=== PATIENT | female | born 1955 | race Caucasian/White ===

== ENCOUNTER → 2018-06-30 14:30 | Outpatient (CLI) | payer MEDICARE, OTHER, SELFPAY | PROVIDERS: Visit Provider Psychiatry & Neurology Neurology | DX: G43.009 Migraine without aura, not intractable, without status migrainosus (principal); R20.2 Paresthesia of skin | CPT/HCPCS: 99214 ==

== ENCOUNTER → 2018-07-14 10:08 | Outpatient (CLI) | payer MEDICARE, OTHER, SELFPAY ==
[2018-07-14 12:02] LABS: TSH (W/Ref FT4) 1.47 uIU/mL (0.358-3.74)
== END ==
DX: F41.9 Anxiety disorder, unspecified (principal); R20.8 Other disturbances of skin sensation; G43.009 Migraine without aura, not intractable, without status migrainosus
CPT/HCPCS: 36415; 84443

== ENCOUNTER 2018-08-07 14:02 | Outpatient (REF) | payer MEDICARE, OTHER, SELFPAY ==
[2018-08-10 10:47] LABS: Campylobacter PCR SEE COMMENTS; Salmonella PCR SEE COMMENTS; Shiga Toxin PCR SEE COMMENTS; Shigella/Enteroinvasive Ecoli SEE COMMENTS
[2018-08-11 17:27] LABS: Calprotectin <15.6 mcg/g
== END 2018-08-07 14:22 ==
LOC: LBN 14:02
PROVIDERS: Visit Provider Nurse Practitioner Family
DX: K58.1 Irritable bowel syndrome with constipation (principal); R14.0 Abdominal distension (gaseous); R13.10 Dysphagia, unspecified
CPT/HCPCS: 87505; 83993; 87324

== ENCOUNTER 2018-12-30 01:24 | Outpatient (CLI) | payer MEDICARE, OTHER, SELFPAY ==
--- NOTE | 2018-12-30 12:55 | DI.MAMMO_ITS ---
SYMPTOM/DIAGNOSIS: SCREENING, Z12.31 MAMMOGRAMS: Mammograms were interpreted according to the usual protocol including computer analysis with CAD system, tomosynthesis and C view imaging. Comparison is made with exams from [id number]. The breasts are composed of scattered fibroglandular densities, breast density, Category B. No suspicious masses or suspicious microcalcifications are seen. There has been no significant change. IMPRESSION: Category 1B, negative mammogram. Yearly screening mammography is recommended. [facility] ASSESSMENT OF FINDINGS: Negative. Category 1. Patient will receive a letter notifying them of these results. BI-RADS category B. There are scattered areas of fibroglandular density.
== END 2018-12-30 01:44 ==
DX: Z12.31 Encounter for screening mammogram for malignant neoplasm of breast (principal)
CPT/HCPCS: 77063; 77067

== ENCOUNTER 2019-12-20 02:13 | Outpatient (CLI) | payer MEDICARE, OTHER, SELFPAY ==
[2019-12-20 13:51] LABS: ALT 42 U/L (14-59); AST 25 U/L (15-37); Albumin 3.6 g/dL (3.4-5.0); Alkaline Phosphatase 120 U/L (46-116); Anion Gap 8.8 mmol/L (3-11); BUN 15 mg/dL (7-18); Bilirubin, Total 0.4 mg/dL (0.2-1.0); CO2 28.2 mmol/L (21.0-32.0); CREATININE 0.94 mg/dL (0.55-1.02); Calcium 9.3 mg/dL (8.5-10.1); Calculated LDL 160 mg/dL (>130); Chloride 105 mmol/L (98-107); Cholesterol 249 mg/dL (<200); Estimated GFR 59.58 (mL/min/1.73m2); Glucose 86 mg/dL (74-106); HDL Cholesterol 72 mg/dL (40-60); Potassium 4.7 mmol/L (3.5-5.1); Sodium 142 mmol/L (136-145); Total Protein 7.2 g/dL (6.4-8.2); Triglyceride 86 mg/dL (<150)
[2019-12-21 07:55] LABS: Vitamin D 25 Total 32.6 ng/ml (30-100)
== END 2019-12-20 02:33 ==
DX: I10 Essential (primary) hypertension (principal); E03.9 Hypothyroidism, unspecified; E55.9 Vitamin D deficiency, unspecified; Z13.6 Encounter for screening for cardiovascular disorders
CPT/HCPCS: 36415; 80053; 80061; 82306

== ENCOUNTER 2020-06-04 00:25 | Outpatient (CLI) | payer MEDICARE, OTHER, SELFPAY ==
--- NOTE | 2020-06-04 12:45 | DI.MAMMO_ITS ---
EXAM: MAMMO SCREENING CLINICAL HISTORY: screening, Z12.39 TECHNIQUE: Mammograms were interpreted according to the usual protocol including computer analysis w ith CAD system, tomosynthesis and C-view imaging. COMPARISON: 2012 through 2018 FINDINGS: The breasts are composed of scattered fibroglandular densities, Breast Density category B. No suspicious masses or suspicious microcalcifications are seen. No skin thickening or abnormal axillary lymph nodes are seen. There has been no significant change from prior exams. IMPRESSION: BI-RADS Category 1 - Negative Yearly screening mammography is recommended. Breast Density Category B, scattered fibroglandular densities.
== END 2020-06-04 00:45 ==
DX: Z12.31 Encounter for screening mammogram for malignant neoplasm of breast (principal)
CPT/HCPCS: 77063; 77067

== ENCOUNTER 2021-07-23 04:50 | Outpatient (CLI) | payer MEDICARE, OTHER, SELFPAY ==
[2021-07-23 12:44] LABS: HCT 39.5 % (36.0-46.0); HGB 12.5 g/dL (11.2-15.7); MCH 28.7 pg (27.0-33.0); MCHC 31.6 % (32.0-36.0); MCV 90.8 fL (80-95); MPV 10.7 fL (8.0-11.0); Platelet Count 273 10^3/uL (130-400); RBC 4.35 10^6/uL (3.93-5.22); RDW 14.2 % (11.7-14.6); RDW-SD 47.5 fL; WBC 6.69 10^3/uL (4.4-10.8)
[2021-07-23 13:08] LABS: ALT 28 U/L (14-59); AST 24 U/L (15-37); Albumin 3.7 g/dL (3.4-5.0); Alkaline Phosphatase 108 U/L (46-116); Anion Gap 7.3 mmol/L (3-11); BUN 23 mg/dL (7-18); Bilirubin, Total 0.4 mg/dL (0.2-1.0); CO2 28.7 mmol/L (21.0-32.0); CREATININE 1.1 mg/dL (0.55-1.02); Calcium 9.2 mg/dL (8.5-10.1); Chloride 104 mmol/L (98-107); Estimated GFR 49.39 (mL/min/1.73m2); Glucose 83 mg/dL (74-106); Potassium 4.3 mmol/L (3.5-5.1); Sodium 140 mmol/L (136-145); Total Protein 7.4 g/dL (6.4-8.2)
== END 2021-07-23 04:51 | disposition home or self-care (01) ==
LOC: LOS 04:51
DX: D50.9 Iron deficiency anemia, unspecified (principal); K21.9 Gastro-esophageal reflux disease without esophagitis
CPT/HCPCS: 36415; 80053; 85027

== ENCOUNTER → 2022-03-17 01:22 | Outpatient (CLI) | payer MEDICARE, OTHER, SELFPAY ==
--- NOTE | 2022-03-17 08:30 | DI.MAMMO_ITS ---
Exam(s) MAMMO SCREENING EXAM: MAMMO SCREENING CLINICAL HISTORY: screening,Z12.39 TECHNIQUE: Mammograms were interpreted according to the usual protocol including computer analysis w [employer] CAD system, tomosynthesis and C-view imaging. COMPARISON: 2012 through 2019 FINDINGS: The breasts are composed of scattered fibroglandular densities, Breast Density category B. No suspicious masses or suspicious microcalcifications are seen. No skin thickening or abnormal axillary lymph nodes are seen. There has been no significant change from prior exams. IMPRESSION: BI-RADS Category 1, Negative mammogram Yearly screening mammography is recommended. Breast Density - Category B, scattered fibroglandular densities. A negative radiographic report should not delay biopsy if a dominant or clinically suspicious mass is present. Up to ten percent of cancers are not identified on mammography. A negative report may reinforce clinical impression. Adenosis and dense breasts may obscure an underlying neoplasm. False positive reports average 6 to 10%. Patient will receive a letter notifying them of these results.
== END ==
DX: Z12.31 Encounter for screening mammogram for malignant neoplasm of breast (principal)
CPT/HCPCS: 77063; 77067

== ENCOUNTER 2022-03-20 02:39 | Outpatient (CLI) | payer MEDICARE, OTHER, SELFPAY ==
[2022-03-20 12:06] LABS: ALT 26 U/L (14-59); AST 20 U/L (15-37); Albumin 3.9 g/dL (3.4-5.0); Alkaline Phosphatase 111 U/L (46-116); BUN 19 mg/dL (7-18); Bilirubin, Total 0.4 mg/dL (0.2-1.0); Calcium 9.4 mg/dL (8.5-10.1); Calculated LDL 146 mg/dL (<100); Chloride 105 mmol/L (98-107); Cholesterol 232 mg/dL (<200); Estimated GFR 54.97 (mL/min/1.73m2); Glucose 90 mg/dL (74-106); HDL Cholesterol 68 mg/dL (40-60); Potassium 4.5 mmol/L (3.5-5.1); Sodium 140 mmol/L (136-145); Total Protein 7.6 g/dL (6.4-8.2); Triglyceride 93 mg/dL (<150)
== END 2022-03-20 02:40 | disposition home or self-care (01) ==
LOC: LBO 02:39
DX: E78.5 Hyperlipidemia, unspecified (principal); F41.9 Anxiety disorder, unspecified; K21.9 Gastro-esophageal reflux disease without esophagitis; K58.9 Irritable bowel syndrome, unspecified
CPT/HCPCS: 36415; 80053; 80061

== ENCOUNTER 2023-04-08 01:02 | Outpatient (CLI) | payer MEDICARE, OTHER, SELFPAY ==
--- NOTE | 2023-04-08 08:15 | DI.MAMMO_ITS ---
Exam(s) MAMMO SCREENING EXAM: MAMMO SCREENING CLINICAL HISTORY: screening,z12.39 TECHNIQUE: Mammograms were interpreted according to the usual protocol including computer analysis w [employer] CAD system, tomosynthesis and C-view imaging. COMPARISON: 2012 through 2021 FINDINGS: The breasts are composed of scattered fibroglandular densities, Breast Density category B. No suspicious masses or suspicious microcalcifications are seen. No skin thickening or abnormal axillary lymph nodes are seen. There has been no significant change from prior exams. IMPRESSION: BI-RADS Category 1, Negative mammogram Yearly screening mammography is recommended. Breast Density - Category B, scattered fibroglandular densities. A negative radiographic report should not delay biopsy if a dominant or clinically suspicious mass is present. Up to ten percent of cancers are not identified on mammography. A negative report may reinforce clinical impression. Adenosis and dense breasts may obscure an underlying neoplasm. False positive reports average 6 to 10%. Patient will receive a letter notifying them of these results.
== END 2023-04-08 01:22 ==
LOC: DI 01:03
PROVIDERS: PCP Nurse Practitioner Family; Visit Provider Nurse Practitioner Family
DX: Z12.31 Encounter for screening mammogram for malignant neoplasm of breast (principal)
CPT/HCPCS: 77063; 77067

== ENCOUNTER 2024-02-16 04:39 | Outpatient (CLI) | payer MEDICARE, SELFPAY ==
[2024-02-16 10:35] LABS: ALT 29 U/L (14-59); AST 24 U/L (15-37); Albumin 3.6 g/dL (3.4-5.0); Alkaline Phosphatase 104 U/L (46-116); Anion Gap 10.7 mmol/L (3-11); BUN 20 mg/dL (7-18); Bilirubin, Total 0.4 mg/dL (0.2-1.0); CO2 28.3 mmol/L (21.0-32.0); CREATININE 1.1 mg/dL (0.55-1.02); Calcium 9.6 mg/dL (8.5-10.1); Calculated LDL 142 mg/dL (<100); Chloride 105 mmol/L (98-107); Cholesterol 237 mg/dL (<200); Estimated GFR 53.72 (mL/min/1.73m2); Glucose 93 mg/dL (74-106); HDL Cholesterol 85 mg/dL (40-60); Potassium 4.4 mmol/L (3.5-5.1); Sodium 144 mmol/L (136-145); Total Protein 7.8 g/dL (6.4-8.2); Triglyceride 51 mg/dL (<150)
[2024-02-16 10:36] LABS: Folate > 20.0 ng/mL (8.6-20.0); Vitamin B12 > 2000 pg/mL (193-986)
== END 2024-02-16 04:40 | disposition home or self-care (01) ==
PROVIDERS: PCP Nurse Practitioner Adult Health; Visit Provider Nurse Practitioner Adult Health
DX: R53.83 Other fatigue (principal); Z13.220 Encounter for screening for lipoid disorders; Z13.1 Encounter for screening for diabetes mellitus; E78.5 Hyperlipidemia, unspecified
CPT/HCPCS: 36415; 80053; 80061; 82607; 82746

== ENCOUNTER → 2024-04-11 03:03 | Outpatient (CLI) | payer MEDICARE, SELFPAY ==
--- NOTE | 2024-04-11 07:15 | DI.MAMMO_ITS ---
Exam(s) MAMMO SCREENING EXAM: MAMMO SCREENING CLINICAL HISTORY: screening,z12.39 TECHNIQUE: Bilateral full field digital CC and MLO mammographic images were obtained with 3D tomosyn thesis and utilizing computer aided detection (CAD). COMPARISON: Available for comparison. FINDINGS: Masses/Architectural Distortion: None seen. Microcalcifications: No suspicious pleomorphic-type are seen. Skin Thickening/Nipple Retraction: None. IMPRESSION: 1. No significant interval change with no specific features of malignancy noted. 2. Unless there is more urgent need, screening mammography is recommended, as per [employer] guidelines. BI-RADS Category 1 - Negative Breast Density - Category B - Scattered areas of fibroglandular density Breast density category C or D implies that the patient has dense breast tissue. Dense breast tissue is very common and is not abnormal but dense breast tissue can make it harder to find cancer on a ma mmogram. Also, dense breast tissue may increase their breast cancer risk. This information about the result of the mammogram report was provided to the patient to raise their awareness. Use this report when you speak with the patient about their risks for breast cancer, which includes their family hist ory. At that time, you may recommend for more screening tests (Ultrasound or MRI) as they might be us eful based on their risk. A negative radiographic report should not delay biopsy if a dominant or clinically suspicious mass is present. Up to ten percent of cancers are not identified on mammography. A negative report may reinforce clinical impression. Adenosis and dense breasts may obscure an underlying neoplasm. False positive reports average 6 to 10%. Patient will receive a letter notifying them of these results.
== END ==
PROVIDERS: PCP Nurse Practitioner Adult Health; Visit Provider Nurse Practitioner Adult Health
DX: Z12.31 Encounter for screening mammogram for malignant neoplasm of breast (principal)
CPT/HCPCS: 77063; 77067

== ENCOUNTER 2024-07-02 15:57 | Outpatient (REF) | payer MEDICARE, SELFPAY ==
[2024-07-02 16:24] LABS: Bilirubin Negative (Negative); Blood Small (Negative); Clarity Sl Cloudy (Clear); Glucose Negative (Negative); Ketones Negative (Negative); Leukocyte Esterase Moderate (Negative); Nitrite Negative (Negative); Urobilinogen 0.2 mg/dL (Up to 0.2); pH 5.5 (5-8)
[2024-07-02 16:36] LABS: Bacteria Moderate HPF (Negative); Epithelial Cells Few HPF (Negative); Other Cells Rare Renal (Negative); WBC 20-50 HPF (0-5)
[2024-07-02 16:37] LABS: C & S Indicated? Yes; Casts Negative LPF (Negative); Crystals Negative HPF (Negative); Mucus Negative (Negative)
== END 2024-07-02 15:58 | disposition home or self-care (01) ==
LOC: LBN 15:57
PROVIDERS: PCP Nurse Practitioner Adult Health; Visit Provider Nurse Practitioner Family
DX: N76.0 Acute vaginitis (principal); B37.9 Candidiasis, unspecified; N39.0 Urinary tract infection, site not specified
CPT/HCPCS: 87077; 81003; 81015; 87086; 87186; 87480; 87510; 87660

== ENCOUNTER 2024-12-15 22:40 | Observation (INO) | payer MEDICARE, OTHER, SELFPAY ==
[2024-12-15] VITALS (46 sets, daily range): BP systolic 147–170; BP diastolic 57–137; PULSE 62–66; RESP 10–22; O2SAT 100
--- NOTE | 2024-12-15 00:09 | DI.CT_ITS ---
Exam(s) CT ABDOMEN PELVIS W EXAM: CT ABDOMEN PELVIS W CLINICAL HISTORY: right sided abdominal pain with vomiting. TECHNIQUE: Imaging Protocol: Axial computed tomography images with coronal and sagittal reformatted images were created and reviewed CONTRAST MATERIAL: Intravenous: Omnipaque 350 Contrast volume:75 ml Oral: no COMPARISON: CT ABD PELVIS WITH CONTRAST from 01/08/2011 FINDINGS: ABDOMEN and PELVIS: Lung Bases: No acute findings. Liver: Normal density. No suspicious mass. No portal venous air. Gallbladder and biliary tract: No radiodense calculus. No wall thickening or pericholecystic fluid. No biliary dilation. Pancreas: Normal density. No abnormal calcifications or inflammatory process. No evidence of mass. Spleen: Normal. Kidneys: Normal size, contour and axis. No radiodense stones. No obstructive uropathy. No suspicious masses seen. Adrenal glands: No masses seen. Vasculature: Abdominal aorta non-dilated. Atherosclerotic changes. Abnormal rotation and swirling of the central causing for focal narrowing or occlusion. No thrombus visual. Mesenteric veins Soft tissues: Unremarkable. Bladder: Nearly empty. Not well evaluated. Bowel: No obstruction. No bowel wall thickening. No pneumatosis. Appendix normal. Increased francisco tity of stool. Peritoneal cavity: Mild amount of ascites noted. Marked mesenteric edema. No free air. Bones: Unremarkable for age. Reproductive organs: Uterine fibroids. Lymph nodes: No pathologically enlarged lymph nodes. 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 Significant mesenteric edema as well as ascites. No bowel wall thickening or pneumatosis. RADIATION DOSE DELIVERED: 311.48mGy.cm Total DLP DATA REPOSITORY: All CT scans at this facility are submitted to the National Radiology Data Registry (NRDR) Dose Index Registry (DIR) with the [employer] (ACR). RADIATION OPTIMIZATION: All CT scans at this facility use at least one of these dose optimization te chniques: automated exposure control; mA and/or kV adjustment per patient size (includes targeted exa ms where dose is matched to clinical indication); or iterative reconstruction.
--- NOTE | 2024-12-15 22:45 | RT.EKG_ITS ---
APPROVED REPORT Exam: Resting ECG Reason for Exam: right sided abdominal pain Patient Location: E HR:64 bpm ECG Measurements Heart Rate 64 AXIS MD 156 P 23 QRSd 100 QRS -24 QT 454 T 67 QTc 464 Conclusion Sinus rhythm...normal P axis, V-rate 60- 99 Atrial premature complex...SV complex w/ short R-R interval
[2024-12-15 23:05] LABS: Abs Immature Grans 0.04 10^3/uL (0.0-0.06); Absolute Basophil Count 0.09 10^3/uL (0.0-0.2); Absolute Eosinophil Count 0.04 10^3/uL (0.0-0.7); Absolute Monocyte Count 0.75 10^3/uL (0.1-0.8); Basophils % 0.7 %; Eosinophils % 0.3 %; HCT 43.5 % (36.0-46.0); HGB 14.4 g/dL (11.2-15.7); Immature Grans % 0.3 %; Lymphocytes % 13.1 %; MCH 29.6 pg (27.0-33.0); MCHC 33.1 % (32.0-36.0); MCV 90 fL (80-95); MPV 10.4 fL (8.0-11.0); Neutrophils % 79.6 %; Platelet Count 271 10^3/uL (130-400); RBC 4.86 10^6/uL (3.93-5.22); RDW 14.4 % (11.7-14.6); RDW-SD 47.2 fL; WBC 12.56 10^3/uL (4.4-10.8)
[2024-12-15 23:07] LABS: Absolute Lymphocyte Count 1.65 10^3/uL (1.2-3.4); Lactate 2.9 mmol/L (0.6-1.4)
[2024-12-15 23:25] LABS: ALT 26 U/L (14-59); AST 20 U/L (15-37); Albumin 3.7 g/dL (3.4-5.0); Alkaline Phosphatase 118 U/L (46-116); Anion Gap 10.3 mmol/L (3-11); BUN 41 mg/dL (7-18); CO2 28.7 mmol/L (21.0-32.0); CREATININE 1.3 mg/dL (0.55-1.02); Chloride 100 mmol/L (98-107); Estimated GFR 43.96 (mL/min/1.73m2); Glucose 170 mg/dL (74-106); Lipase 47 U/L (<78); Potassium 3.7 mmol/L (3.5-5.1); Sodium 139 mmol/L (136-145); Troponin I 6 ng/L (<or=51)
[2024-12-15] MEDS: Ondansetron 4 MG/2 ML VIAL IVP (23:25)
[2024-12-15] MEDS: ACETAMINOPHEN 1,000 MG/100 ML BAG 400 MG IVPB (23:25)
[2024-12-15] MEDS: Normal Saline 1,000 ML 1000 ML IV (23:25)
[2024-12-15] MEDS: Ketorolac 15 MG/ML VIAL IVP (23:25)
[2024-12-15 23:28] LABS: Calcium 9.8 mg/dL (8.5-10.1)
[2024-12-15] MEDS: Normal Saline - Diluent 50 ML VIAL IJ (23:44)
[2024-12-15] MEDS: Omnipaque 350 MG/ML 100 ML BTL 75 ML IJ (23:46)
[2024-12-15 23:49] LABS: Bilirubin Negative (Negative); Blood Negative (Negative); Clarity Clear (Clear); Glucose Negative (Negative); Ketones Negative (Negative); Leukocyte Esterase Negative (Negative); Nitrite Negative (Negative); Urobilinogen 0.2 mg/dL (Up to 0.2); pH 7.5 (5-8)
[2024-12-16] VITALS (9 sets, daily range): BP systolic 127–159; BP diastolic 55–72; PULSE 63; RESP 10–22; TEMP 36.1–37; O2SAT 97–100
[2024-12-16 00:43] LABS: Troponin I 6 ng/L (<or=51)
--- NOTE | 2024-12-16 00:57 | ED.GENADUL_ITS ---
Discharge Plan Disposition Patient Disposition: Admit to [facility] Condition: Improving Discharge Details Chief Complaint: Abd Prob Clinical Impression: Abdominal pain, Nonocclusive mesenteric ischemia Primary Care Provider: Maddy Ivey ED Provider: Brian Ornelas Home Meds and New Rx's Prescriptions: No Action [facility] 1 cap PO DAILY multivitamin Tablet 1 tab PO DAILY Patient Comments: Pt takes 1/2 tab TID. reported by pt amitriptyline 10 mg tablet 10 mg PO HS PRN (Reason: insomnia) Qty: 45 3RF peppermint oil 50 mg capsule,delayed release(DR/EC) 50 mg PO calcium polycarbophil 625 mg tablet 1,250 mg PO DAILY magnesium chloride [Mag 64] 64 mg tablet,delayed release (DR/EC) 64 mg PO DAILY acetaminophen [Tylenol] 325 MG tablet 325 mg PO PRN estradiol 0.01 % (0.1 mg/gram) cream 1 g vaginal .2-3 times per week Qty: 42.5 3RF HPI General Date/Time Provider Initiated Documentation: 12/15/24 22:45 . HPI Narrative: This is a very pleasant 69-year-old female with a past medical history of reflux, IBS, previous left-sided oophorectomy, who presents today for evaluation of abdominal pain. Patient states that at around 7 PM she developed severe relatively diffuse and right upper and right lateral sided abdominal pain that then transitioned throughout her entire abdomen. It was sharp and severe in nature. She admits to multiple episodes of vomiting and diarrhea after these episodes of pain began. Pain is relatively constant now. She denies having symptoms like this before. She had a protein shake earlier today but had no pain or difficulty when eating that. No other complaints at this time. Related Data Home Medications ?Medication ?Instructions ?Recorded ?Confirmed acetaminophen 325 mg tablet 325 mg PO PRN 05/19/18 10/19/24 (Tylenol) [facility] 1 cap PO DAILY 12/26/19 12/15/24 calcium polycarbophil 625 mg tablet 1,250 mg PO DAILY 12/31/20 12/15/24 amitriptyline 10 mg tablet 10 mg PO HS PRN insomnia #45 03/11/22 12/15/24 tab-caps multivitamin 1 tab PO DAILY 03/11/22 12/15/24 magnesium chloride 64 mg 64 mg PO DAILY 04/06/24 12/15/24 (magnesium chloride) tablet,delayed release (Mag 64) estradiol 0.01% (0.1 mg/gram) 1 g vaginal .2-3 times per week 06/10/24 12/15/24 vaginal cream #42.5 grams peppermint oil 50 mg 50 mg PO 10/19/24 10/19/24 capsule,delayed release Previous Rx's ?Medication ?Instructions ?Recorded amitriptyline 10 mg tablet 10 mg PO HS PRN insomnia #45 03/11/22 tab-caps estradiol 0.01% (0.1 mg/gram) 1 g vaginal .2-3 times per week 06/10/24 vaginal cream #42.5 grams Allergies Allergy/AdvReac Type Severity Reaction Status Date / Time clindamycin AdvReac Severe GI UPSET Verified 12/15/24 22:43 lactose AdvReac INTOLERANT, Verified 12/15/24 22:43 GI UPSET General Stated Complaint: Abd Prob JENNIFER: 3 Exam Narrative Exam Narrative: 1.Const: Well-nourished, Well-developed, appearing stated age 2.Eyes: PERRL, no conjunctival injection, and symmetrical lids. 3.ENT: Atraumatic external nose and ears. Moist MM. Neck: Symmetric, trachea mi dline, No thyromegaly. 4.CVS: +S1/S2, Peripheral pulses 2+ and equal in all extremities. Brisk capillary refill in all extremities. 5.RESP: Unlabored respiratory effort. Clear to auscultation bilaterally. No wheezes rales or rhonchi 6.GI: Soft, notable tenderness throughout, particularly in the right upper and right lateral aspects. No right lower quadrant tenderness. Mild epigastric ten derness. 7.MSK: Normocephalic/Atraumatic, Extremities w/o deformity or ttp No cyanosis or clubbing, Normal movement of all extremities 8.Skin: Warm, Dry. No rashes or lesions. 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 Sensation grossly intact, no focal neurologic deficits. 10.Psych: (AAO) x3. Appropriate mood and affect Course Vital Signs Vital signs: Vital Signs Pulse 66 12/15/24 22:45 Respiratory Rate 22 12/15/24 22:45 Blood Pressure 147/99 H 12/15/24 22:45 Pulse Oximetry 100 12/15/24 22:45 Pulse 64 12/15/24 22:48 Respiratory Rate 17 12/15/24 22:48 Blood Pressure 147/99 H 12/15/24 22:48 Blood Pressure Position Sitting 12/15/24 22:48 Pulse Oximetry 100 12/15/24 22:48 Oxygen Delivery Method Room Air 12/15/24 22:48 Oxygen Flow Rate 0 12/15/24 22:45 Pain Level 7 12/15/24 22:48 Lab/Test Results Lab/Test Results: Laboratory Tests Range/Units 12/15/24 12/15/24 12/16/24 22:59 23:40 00:20 WBC (4.4-10.8) 10^3/uL 12.56 H RBC (3.93-5.22) 10^6/uL 4.86 Hgb (11.2-15.7) g/dL 14.4 Hct (36.0-46.0) % 43.5 MCV (80-95) fL 90 MCH (27.0-33.0) pg 29.6 MCHC (32.0-36.0) % 33.1 RDW (11.7-14.6) % 14.4 Plt Count (130-400) 10^3/uL 271 MPV (8.0-11.0) fL 10.4 Immature Gran % % 0.3 Neutrophils % % 79.6 Lymphocytes % % 13.1 Monocytes % % 6.0 Eosinophils % % 0.3 Basophils % % 0.7 Nucleated RBC % (0.0-0.3) % 0.0 Absolute Neutrophils (1.2-6.7) 10^3/uL 10.00 H Absolute Lymphocytes (1.2-3.4) 10^3/uL 1.65 Absolute Monocytes (0.1-0.8) 10^3/uL 0.75 Absolute Eosinophils (0.0-0.7) 10^3/uL 0.04 Absolute Basophils (0.0-0.2) 10^3/uL 0.09 VBG Lactate (0.6-1.4) mmol/L 2.9 H* Sodium (136-145) mmol/L 139 Potassium (3.5-5.1) mmol/L 3.7 Chloride (98-107) mmol/L 100 Carbon Dioxide (21.0-32.0) mmol/L 28.7 Anion Gap (3-11) mmol/L 10.3 BUN (7-18) mg/dL 41 H Creatinine (0.55-1.02) mg/dL 1.3 H Est GFR (CKD-EPI 2020) (mL/min/1.73m2) 43.96 Glucose (74-106) mg/dL 170 H Calcium (8.5-10.1) mg/dL 9.8 Total Bilirubin (0.2-1.0) mg/dL 0.40 AST (15-37) U/L 20 ALT (14-59) U/L 26 Alkaline Phosphatase (46-116) U/L 118 H Troponin I (<or=51) ng/L 6 6 Total Protein (6.4-8.2) g/dL 8.0 Albumin (3.4-5.0) g/dL 3.7 Lipase (<78) U/L 47 Urine Color (Yellow) Yellow Urine Clarity (Clear) Clear Urine pH (5-8) 7.5 Ur Specific [place] (1.005-1.025) 1.020 Urine Protein (Neg-Trace) mg/dL Negative Urine Ketones (Negative) mg/dL Negative Urine Blood (Negative) Negative Urine Nitrite (Negative) Negative Urine Bilirubin (Negative) Negative Urine Urobilinogen (Up to 0.2) mg/dL 0.2 Ur Leukocyte Esterase (Negative) Negative Urine Glucose (Negative) mg/dL Negative Medical Decision Making This is a very pleasant 69-year-old female with a past medical history of reflux, IBS, previous left-sided oophorectomy, who presents today for evaluation of abdominal pain. Patient states that at around 7 PM she developed severe relatively diffuse and right upper and right lateral sided abdominal pain that then transitioned throughout her entire abdomen. It was sharp and severe in nature. She admits to multiple episodes of vomiting and diarrhea after these episodes of pain began. Pain is relatively constant now. She denies having symptoms like this before. She had a protein shake earlier today but had no pain or difficulty when eating that. No other complaints at this time. Exam demonstrates diffuse tenderness, primarily in the right upper right lateral and epigastric regions though. Minimal left lower quadrant tenderness. Patient appears in notable pain, she is tremulous however she demonstrates normal heart rate. She is not on beta-blockers or calcium channel blockers. Differential includes biliary colic, cholecystitis, pancreatitis. Mesenteric ischemia is certainly on the differential but she has no risk factors of known atherosclerotic disease or A-fib. Will get CT imaging with contrast, check lactate, treat with Toradol and Ofirmev, rehydrate with a liter of normal saline, monitor closely and reassess. 12:40 AM On reassessment patient is feeling much better, pain has notably improved after NSAID therapy. Mild achiness throughout on palpation though. However without abdominal examination, pain is 90% improved. Pending CT scan. Laboratory workup does show evidence of a mild white count at 12.56, lactate of 2.9. Electrolytes otherwise normal. Urinalysis negative. 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 We will give an additional liter of normal saline and recheck the lactate. 1:55 AM Patient has been resuscitated with 2 L of normal saline. Repeat lactate is notably improved at 1.8. She continues to feel much better. Discussed the case with the on-call surgeon Dr. Brenner. He agrees with the assessment and plan and will admit the patient for continued observation. After further discussion with the and , it sounds like over the last few years she has had gradual intermittent worsening episodes of abdominal pain and cramping after eating. They thought it was food allergy related. Certainly may be a reflection of chronic mesenteric ischemia albeit mild, or chronic mild rotational component causing mild ischemia. Regardless patient remained stable at this time. She will be admitted to the floor. I have extensively reviewed the treatment plan with the patient. I have addressed all patient concerns at this time. I have also discussed the plan with the admitting physician and they agree with the current assessment and plan and have agreed to assume responsibility for the patient. All parties demonstrate verbal understanding and agreement with our assessment and plan at this time. The documentation in this chart was dictated using [employer] dictation software. Please excuse any dictation errors. FINDINGS: Liver: Normal. No mass. Gallbladder and biliary ducts: Normal. No calcified stones. No ductal dilation. Pancreas: Unremarkable. Spleen: Normal. Adrenal glands: Normal. No mass. Kidneys and ureters: Normal. No hydronephrosis. Stomach and bowel: No bowel wall thickening or abnormal bowel dilatation. No pneumatosis or portal/mesenteric venous gas. Appendix: Normal appendix. 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 No pneumoperitoneum or abscess. Vasculature: See Intraperitoneal space finding. Lymph nodes: Unremarkable. Urinary bladder: Unremarkable as visualized. Reproductive: Fibroid uterus. Bones/joints: Unremarkable. No acute fracture. Soft tissues: Unremarkable. IMPRESSION: 1. There is an approximately 180 degree clockwise (axial) twisting of the central mesentery resulting in a short segment mechanical compression/occlusion of the superior mesenteric vein (images 96- 111 of axial series 10) with resulting diffuse mesenteric edema and small volume ascites, findings which may herald the impending development of venous intestinal ischemia. 2. Fibroid uterus. Findings discussed with BRIAN ORNELAS MD at time of interpretation. Thank you for allowing us to participate in the care of your patient. Dictated and Authenticated by: Lj Gleason MD 12/16/2024 12:57 AM Eastern Time ([place] & [place]) Quality:SDOH Health Related Social Needs: Health related social needs details N/A Critical Care Time Critical Care Time Critical Care Time: Yes Total Critical Care Time: 45 Attestation: Upon my evaluation, this patient had a high probability of imminent or life- threatening deterioration, which required my direct attention, intervention, and personal management. I have personally provided 45 minutes of critical care time exclusive of time spent on separately billable procedures. Time includes review of laboratory data, radiology results, discussion with consultants, and monitoring for potential decompensation. Interventions were performed as documented. 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 Paternal Cousin Kidney disease Maternal Aunt Colon cancer Social History Smoking/Tobacco Use Status: Never Second Hand Exposure: Yes Smoking risk assessment performed?: Yes Alcohol Intake: never Drug use: Never Substance use type: does not use Counseling given: No Counseling provided: none Adopted: No Caregiver/Support person: No Foster care: No Household members: spouse Housing: house Number of Children: 2 number of grandchildren: 5 Communication Needs: Hard of Hearing and Corrective Lenses Education Level: high school Do you need help understanding health information?: Never current occupation: retired Pets and animals: No Sexually active: Yes Do you think of yourself as: straight/heterosexual Current gender identity: female What is your relationship status?: How often do you talk on the phone with friends or family?: twice per week How often do you get together with friends or relatives?: once per week How often do you attend latter day or buddhism services?: decline to answer Do you belong to any clubs or organized social groups?: no Panel score (0-1 are the most socially isolated patients): 2 What type of physical activity do you participate in: walking, regular exercise and other Details: gardening, lawnmowing Duration: > 90 minutes/day Frequency: 3-4 times per week Teetee/Confucianism: No preference Special teetee needs: No Seatbelt use: always Helmet use: No (No reason to use one) Drive intox or ride w/intox funeral limousine driver: No Do you feel safe at home: Yes Do you feel safe in your relationship?: Yes
--- NOTE | 2024-12-16 00:57 | DI.VRAD_ITS ---
PROCEDURE INFORMATION: Exam: CT Abdomen And Pelvis With Contrast Exam date and time: 12/15/2024 11:43 PM Age: 69 years old Clinical indication: Localized; Patient HX: Right sided abdominal pain with vomiting TECHNIQUE: Imaging protocol: Computed tomography of the abdomen and pelvis with contrast. Radiation optimization: All CT scans at this facility use at least one of these dose optimization techniques: automated exposure control; mA and/or kV adjustment per patient size (includes targeted exams where dose is matched to clinical indication); or iterative reconstruction. Contrast material: [id number]; Contrast volume: 75 ml; Contrast route: INTRAVENOUS (IV); COMPARISON: No relevant prior studies available. FINDINGS: Liver: Normal. No mass. Gallbladder and biliary ducts: Normal. No calcified stones. No ductal dilation. Pancreas: Unremarkable. Spleen: Normal. Adrenal glands: Normal. No mass. Kidneys and ureters: Normal. No hydronephrosis. Stomach and bowel: No bowel wall thickening or abnormal bowel dilatation. No pneumatosis or portal/mesenteric venous gas. Appendix: Normal appendix. 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 No pneumoperitoneum or abscess. Vasculature: See Intraperitoneal space finding. Lymph nodes: Unremarkable. Urinary bladder: Unremarkable as visualized. Reproductive: Fibroid uterus. Bones/joints: Unremarkable. No acute fracture. Soft tissues: Unremarkable. IMPRESSION: 1. 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 2. Fibroid uterus. Findings discussed with ZARI ORNELAS MD at time of interpretation. Dictated and Authenticated by: Lj Gleason MD. Ordering:SLY Torres MD
[2024-12-16] MEDS: Normal Saline 1,000 ML 1000 ML IV (01:07)
[2024-12-16 01:32] LABS: Lactate 1.8 mmol/L (0.6-1.4)
--- NOTE | 2024-12-16 01:51 | SCONE_ITS ---
Date of service: 12/16/24 Time of Service: 01:52 Assessment and Plan Assessment and plan (1) Volvulus: Status: Acute Assessment and plan: 69 yo women who had a mid-gut volvulus. Etiology uncertain, but could have been adhesive band from prior surgery vs a lead point in her mesentery causing it. In general this is a surgical emergency: Pain out of proportion to exam mesenteric ischemia of the small bowel from a volvulus. Her short clinical course in the ED has been resolution however. It sounds to me that acute mesenteric ischemia was the patient's presentation, but the pain has now gone away which reflects untwisting of what was probably completely (360+) twisted at the onset. Her CT scan finding of 180 twist as well as SMV compression along with the edematous mesentery supports this diagnosis and the clinical course as well. 180 degree twist and SMV compression (which is what is seen) would NOT cause the acute presentation described . . . while SMA compression, acute arterial ischemia and a 360+ twist would. I think the CT scan caught the scenario [id number] while it was already untwisting. If her pain was still present, or if the SMA was occluded on CT, we would take her to the OR immediately for exploration. Given that she is almost back to normal subjectively at the time of consultation, and in conjunction with the CT showing patency of the SMA and only potentially venous occlusion of the SMV in the mesentery, she can be monitored for the next few hours and decipher if she gets complete resolution. Her abdominal exam will be somewhat uncomfortable for the next while because of the secondary mesenteric edema/inflammation . . . what is most important is her subjective report on the pain. If anything worsens, returns, etc, then we will go to the OR. If some mild residual discomfort settles in or slightly worsens, she may warrant diagnostic laparoscopy in the next 12-18 hours to see if there is a residual twist or partial twist still at play. If she sustains a complete subjective cure in the next 12-18 hours, she can go home. Overall PLAN: Admit the Med-Surg floor for observation No pain medication will be ordered - the nurses are expected to call me if her subjective abdominal pain returns Return of the severe pain that brought her to the ED warrants immediate exploratory laparoscopy. If she is back to normal in the next 8 hours, she can be discharged home with caution to return to the ED immediately if/when symptoms ever return. If some mild discomfort lingers beyond the morning(8-12 hours), probably worthwhile to look with a laparoscope and see if something remains partially twisted (as suggested by the CT). History of Present Illness Narrative: Called by ED provider about a 69 yo woman who presented with acute and sudden abdominal pain which started about 6-7 hours ago. She came to the ED because it was so severe. At the time of this consultation, the pain has subsided and is essentially gone per report. She had had associated vomiting and nausea as well, and this also has subsided per report. Per ED provider the patient says I feel 90% better. A CT scan had been done which reported 180 degree twist of the small bowel mesentery with compression of the SMV and associated mesenteric edema. There is no mention of malrotation. There is no mention of bowel wall thickening, pneumotosis or any other radiographic sign of concern. 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 Paternal Cousin Kidney disease Maternal Aunt Colon cancer Social History Smoking/Tobacco Use Status: Never Second Hand Exposure: Yes Smoking risk assessment performed?: Yes Alcohol Intake: never Drug use: Never Substance use type: does not use Counseling given: No Counseling provided: none Adopted: No Caregiver/Support person: No Foster care: No Household members: spouse Housing: house Number of Children: 2 number of grandchildren: 5 Communication Needs: Hard of Hearing and Corrective Lenses Education Level: high school Do you need help understanding health information?: Never current occupation: retired Pets and animals: No Sexually active: Yes Do you think of yourself as: straight/heterosexual Current gender identity: female What is your relationship status?: How often do you talk on the phone with friends or family?: twice per week How often do you get together with friends or relatives?: once per week How often do you attend holiness or mandaen services?: decline to answer Do you belong to any clubs or organized social groups?: no Panel score (0-1 are the most socially isolated patients): 2 What type of physical activity do you participate in: walking, regular exercise and other Details: gardening, lawnmowing Duration: > 90 minutes/day Frequency: 3-4 times per week Teetee/Congregation: No preference Special teetee needs: No Seatbelt use: always Helmet use: No (No reason to use one) 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 Abdominal exam: Mildly tender diffusely, but without peritoneal sign and without distention. Results Last Vital Signs Pulse 64 12/15/24 22:48 Resp 17 12/15/24 22:48 BP 147/99 H 12/15/24 22:48 Pulse Ox 100 12/15/24 22:48 Labs 12/15/24 22:59 12/15/24 22:59 Labs: Laboratory Results - last 24 hr 12/15/24 12/15/24 12/16/24 22:59 23:40 00:20 WBC 12.56 H RBC 4.86 Hgb 14.4 Hct 43.5 MCV 90 MCH 29.6 MCHC 33.1 RDW 14.4 Plt Count 271 MPV 10.4 Immature Gran % 0.3 Neutrophils % 79.6 Lymphocytes % 13.1 Monocytes % 6.0 Eosinophils % 0.3 Basophils % 0.7 Nucleated RBC % 0.0 Absolute Neutrophils 10.00 H Absolute Lymphocytes 1.65 Absolute Monocytes 0.75 Absolute Eosinophils 0.04 Absolute Basophils 0.09 VBG Lactate 2.9 H* Sodium 139 Potassium 3.7 Chloride 100 Carbon Dioxide 28.7 Anion Gap 10.3 BUN 41 H Creatinine 1.3 H Est GFR (CKD-EPI 2020) 43.96 Glucose 170 H Calcium 9.8 Total Bilirubin 0.40 AST 20 ALT 26 Alkaline Phosphatase 118 H Troponin I 6 6 Total Protein 8.0 Albumin 3.7 Lipase 47 Urine Color Yellow Urine Clarity Clear Urine pH 7.5 Ur Specific [place] 1.020 Urine Protein Negative Urine Ketones Negative Urine Blood Negative Urine Nitrite Negative Urine Bilirubin Negative Urine Urobilinogen 0.2 Ur Leukocyte Esterase Negative Urine Glucose Negative 12/16/24 01:30 WBC RBC Hgb Hct MCV MCH MCHC RDW Plt Count MPV Immature Gran % Neutrophils % Lymphocytes % Monocytes % Eosinophils % Basophils % Nucleated RBC % Absolute Neutrophils Absolute Lymphocytes Absolute Monocytes Absolute Eosinophils Absolute Basophils VBG Lactate 1.8 H Sodium Potassium Chloride Carbon Dioxide Anion Gap BUN Creatinine Est GFR (CKD-EPI 2020) Glucose Calcium Total Bilirubin AST ALT Alkaline Phosphatase Troponin I Total Protein Albumin Lipase Urine Color Urine Clarity Urine pH Ur Specific [place] Urine Protein Urine Ketones Urine Blood Urine Nitrite Urine Bilirubin Urine Urobilinogen Ur Leukocyte Esterase Urine Glucose
[2024-12-16 01:52] LABS: Troponin I 8 ng/L (<or=51)
--- NOTE | 2024-12-16 03:24 | W.PC.ACHO ---
Registration Status: Primary Language: Preferred Language: ED Information & Data Chief Complaint Abd Prob 12/16/24 01:00 Triage Note Pt had protein drink ~1400 12/15/24 22:45 and since then has been having hot and cold flashes and abd bloating and cramping/diarrhea w/ nausea and vomiting Medical / Surgical History (Last Reviewed 10/19/24 @ 15:10 by Maddy Ivey NP) COVID-19 (~06/05/22) Immunization counseling Impacted cerumen of both ears Cyst Duodenitis determined by biopsy (~2017) Pain, dental (06/08/18) Muscle spasm (06/23/14) Jaw pain (05/28/16) Hearing loss in right ear (05/28/16) Low back pain radiating to left leg (09/18/15) Burning sensation (06/08/18) (Last Reviewed 10/19/24 @ 15:10 by Maddy Ivey NP) Oophrectomy, Left Most Recent Vital Signs Temperature 36.4 C L 12/16/24 02:59 Pulse 63 12/16/24 02:59 Pulse Rhythm Regular 12/16/24 02:59 Respiratory Rate 15 12/16/24 02:59 Respiratory Effort Normal, Non-Labored 12/16/24 02:59 Respiratory Depth Normal 12/16/24 02:59 Respiratory Pattern Normal 12/16/24 02:59 Blood Pressure 159/72 H 12/16/24 02:59 Blood Pressure Position Sitting 12/15/24 22:48 Pulse Oximetry 100 12/16/24 02:59 Oxygen Delivery Method Room Air 12/16/24 02:59 Oxygen Flow Rate 0 12/16/24 02:59 Pain Level 0 12/16/24 02:59 Allergies clindamycin Adverse Reaction (Severe, Verified 12/15/24 22:43) GI UPSET lactose Adverse Reaction (Verified 12/15/24 22:43) INTOLERANT, GI UPSET Precautions Isolation Standard precaution 12/15/24 22:48 Active Medications Generic Name Dose Route Start Last Admin Trade Name Freq PRN Reason Stop Dose Admin Iohexol 75 ml 12/15/24 23:45 12/15/24 23:46 Omnipaque 350 Mg/Ml 100 Ml Btl IJ 01/14/25 23:59 75 ml DIRECTED VALDEMAR Administration Sodium Chloride 50 ml 12/15/24 23:45 12/15/24 23:44 Normal Saline - Diluent 50 Ml Vial IJ 50 ml .FOR DI USE VALDEMAR Administration IV IV Catheter Type [Left Saline Lock Antecubital] IV Catheter Gauge [Left 18 Antecubital] Diet Orders Category Date Time Status Nothing Per Oral [DIET] Nutrition 12/16/24 Breakfast Active Diagnostics 12/16/24 12/16/24 12/16/24 Range/Units 08:30 01:30 00:20 WBC (4.4-10.8) 10^3/uL RBC (3.93-5.22) 10^6/uL Hgb (11.2-15.7) g/dL Hct (36.0-46.0) % MCV (80-95) fL MCH (27.0-33.0) pg MCHC (32.0-36.0) % RDW (11.7-14.6) % Plt Count (130-400) 10^3/uL MPV (8.0-11.0) fL Immature Gran % % Neutrophils % % Lymphocytes % % Monocytes % % Eosinophils % % Basophils % % Nucleated RBC % (0.0-0.3) % Absolute Neutrophils (1.2-6.7) 10^3/uL Absolute Lymphocytes (1.2-3.4) 10^3/uL Absolute Monocytes (0.1-0.8) 10^3/uL Absolute Eosinophils (0.0-0.7) 10^3/uL Absolute Basophils (0.0-0.2) 10^3/uL VBG Lactate Pending 1.8 H (0.6-1.4) mmol/L Sodium (136-145) mmol/L Potassium (3.5-5.1) mmol/L Chloride (98-107) mmol/L Carbon Dioxide (21.0-32.0) mmol/L Anion Gap (3-11) mmol/L BUN (7-18) mg/dL Creatinine (0.55-1.02) mg/dL Est GFR (CKD-EPI 2020) (mL/min/1.73m2) Glucose (74-106) mg/dL Calcium (8.5-10.1) mg/dL Total Bilirubin (0.2-1.0) mg/dL AST (15-37) U/L ALT (14-59) U/L Alkaline Phosphatase (46-116) U/L Troponin I 8 6 (<or=51) ng/L Total Protein (6.4-8.2) g/dL Albumin (3.4-5.0) g/dL Lipase (<78) U/L Urine Color (Yellow) Urine Clarity (Clear) Urine pH (5-8) Ur Specific [place] (1.005-1.025) Urine Protein (Neg-Trace) mg/dL Urine Ketones (Negative) mg/dL Urine Blood (Negative) Urine Nitrite (Negative) Urine Bilirubin (Negative) Urine Urobilinogen (Up to 0.2) mg/dL Ur Leukocyte Esterase (Negative) Urine Glucose (Negative) mg/dL 12/15/24 12/15/24 Range/Units 23:40 22:59 WBC 12.56 H (4.4-10.8) 10^3/uL RBC 4.86 (3.93-5.22) 10^6/uL Hgb 14.4 (11.2-15.7) g/dL Hct 43.5 (36.0-46.0) % MCV 90 (80-95) fL MCH 29.6 (27.0-33.0) pg MCHC 33.1 (32.0-36.0) % RDW 14.4 (11.7-14.6) % Plt Count 271 (130-400) 10^3/uL MPV 10.4 (8.0-11.0) fL Immature Gran % 0.3 % Neutrophils % 79.6 % Lymphocytes % 13.1 % Monocytes % 6.0 % Eosinophils % 0.3 % Basophils % 0.7 % Nucleated RBC % 0.0 (0.0-0.3) % Absolute Neutrophils 10.00 H (1.2-6.7) 10^3/uL Absolute Lymphocytes 1.65 (1.2-3.4) 10^3/uL Absolute Monocytes 0.75 (0.1-0.8) 10^3/uL Absolute Eosinophils 0.04 (0.0-0.7) 10^3/uL Absolute Basophils 0.09 (0.0-0.2) 10^3/uL VBG Lactate 2.9 H* (0.6-1.4) mmol/L Sodium 139 (136-145) mmol/L Potassium 3.7 (3.5-5.1) mmol/L Chloride 100 (98-107) mmol/L Carbon Dioxide 28.7 (21.0-32.0) mmol/L Anion Gap 10.3 (3-11) mmol/L BUN 41 H (7-18) mg/dL Creatinine 1.3 H (0.55-1.02) mg/dL Est GFR (CKD-EPI 2020) 43.96 (mL/min/1.73m2) Glucose 170 H (74-106) mg/dL Calcium 9.8 (8.5-10.1) mg/dL Total Bilirubin 0.40 (0.2-1.0) mg/dL AST 20 (15-37) U/L ALT 26 (14-59) U/L Alkaline Phosphatase 118 H (46-116) U/L Troponin I 6 (<or=51) ng/L Total Protein 8.0 (6.4-8.2) g/dL Albumin 3.7 (3.4-5.0) g/dL Lipase 47 (<78) U/L Urine Color Yellow (Yellow) Urine Clarity Clear (Clear) Urine pH 7.5 (5-8) Ur Specific [place] 1.020 (1.005-1.025) Urine Protein Negative (Neg-Trace) mg/dL Urine Ketones Negative (Negative) mg/dL Urine Blood Negative (Negative) Urine Nitrite Negative (Negative) Urine Bilirubin Negative (Negative) Urine Urobilinogen 0.2 (Up to 0.2) mg/dL Ur Leukocyte Esterase Negative (Negative) Urine Glucose Negative (Negative) mg/dL Intake and Output - 24 Hour Total 12/15/24 22:40 thru 12/16/24 02:59 Intake Total 2099 Balance 2100 Weight 53.977 kg Intake: IV 2100 Falls Risk Assessment History of Falls No History 12/16/24 02:59 Contributing Factors No Factors 12/16/24 02:59 Ambulatory Aids Independent 12/16/24 02:59 Tubes/Lines With any additional score 12/16/24 02:59 Gait Evaluation No gait disturbance 12/16/24 02:59 Cognition No cognitive impairment 12/16/24 02:59 Fall Total Score 20 12/16/24 02:59 Level of Risk Standard/Low Risk 12/16/24 02:59 Problems (Last Reviewed 10/19/24 @ 15:10 by Maddy Ivey NP) Volvulus (Acute) v v v v v v v v v Sending and/or Receiving Nurses: Please use comment section below to note any information pertinent to the patient hand-off not included above. Information / Comments: report at 0250. pt in for abdominal pain, imaging shows 180degree twist of central mesentery with small volume ascites. pt given toradol and ofirmev in ED with positive effect. 18g left AC IV. pt A+OX4. Report received from: juan Navarro RN
[2024-12-16] MEDS: Lactated Ringers 1,000 ML 125 ML IV (03:38)
[2024-12-16] MEDS: Normal Saline Flush 10 ML SYR IVP (03:39)
[2024-12-16] MEDS: Heparin 5,000 UNITS/ML VIAL 5000 UNITS SC (05:27)
[2024-12-16 08:30] LABS: Lactate 0.9 mmol/L (0.6-1.4)
[2024-12-16 10:47] LABS: HCT 39.1 % (36.0-46.0); HGB 12.6 g/dL (11.2-15.7); MCH 29.4 pg (27.0-33.0); MCHC 32.2 % (32.0-36.0); MCV 91 fL (80-95); MPV 11.5 fL (8.0-11.0); Platelet Count 249 10^3/uL (130-400); RBC 4.29 10^6/uL (3.93-5.22); RDW 14.7 % (11.7-14.6); RDW-SD 49.3 fL; WBC 9.13 10^3/uL (4.4-10.8)
--- NOTE | 2024-12-16 12:11 | NUR.NOTE ---
Nursing Note: LR bag empty, so stopped pump as Dr. Rankin will be up soon to see pt and she has been taking fluids without n/v, pain is gone. Dr. Rankin notified.
--- NOTE | 2024-12-16 12:38 | CHAPLAIN ---
I had a short visit with Kathia. A family member/friend was with her. I explained my role and offered support.
--- NOTE | 2024-12-16 13:00 | W.PM.DS.N ---
Date of service: 12/16/24 Time of Service: 13:01 DS: Diagnosis Discharge Diagnosis (1) Volvulus: Status: Acute Asessment and Plan: Spontaneous resolution without intervention. Outpatient follow-up Discharge Plan Disposition Patient Disposition: Home Condition: Improving Discharge Details Reason For Visit: Midgut Volvulus Admit Date/Time: 12/16/24 01:47 Admit Provider: Sean Brenner Attending Provider: Sean Brenenr Primary Care Provider: Maddy Ivey Hospital Course Hospital Course: Kathia is 69 years old. She comes to the emergency department with acute onset of sharp midepigastric abdominal pain that radiated a little bit towards the back, as well as the right side. This was associated with abdominal distention, and nausea with vomiting. She had a mild lactic acidosis, and elevated white blood cell count. She underwent a CT scan that demonstrated a mesenteric volvulus with mesenteric edema. Not long thereafter, she experienced fairly abrupt resolution of her symptoms. By the next morning, her leukocytosis had resolved and her lactic acidosis was normalized. She tolerated liquids without any symptoms, and she was discharged home with outpatient follow-up Home Meds and New Rx's Prescriptions: Continued [employer] [employer] 1 cap PO DAILY multivitamin Tablet 0.5 tab PO DAILY Patient Comments: Pt takes 1/2 tab TID. reported by pt amitriptyline 10 mg tablet 10 mg PO HS PRN (Reason: insomnia) Qty: 45 3RF peppermint oil 50 mg capsule,delayed release(DR/EC) 50 mg PO DAILY calcium polycarbophil 625 mg tablet 1,250 mg PO DAILY magnesium chloride [Mag 64] 64 mg tablet,delayed release (DR/EC) 64 mg PO DAILY acetaminophen [Tylenol] 325 MG tablet 325 mg PO PRN estradiol 0.01 % (0.1 mg/gram) cream 1 g vaginal .2-3 times per week Qty: 42.5 3RF Discharge Instructions Additional Instructions: Kathia, it was a pleasure meeting you and your in the hospital today. I am so glad you are feeling better, and that all of your other signs have normalized. Like we discussed, it appears that you had a partial twisting of your intestine, that appears to have spontaneously resolved itself. As I mentioned, sticking with a softer semiliquid diet over the next 24 to 48 hours to make sure that you continue to improve is probably the easiest option. I typically recommend that people drink what ever they like, and eat things that you would typically eat using a spoon. So long as you continue to feel well, I would advance her diet back up towards what you regularly eat shortly thereafter. I would not be surprised if you have a little bit of loose stools over the next day or so as well. There is nothing to be alarmed about. Recrudescence of nausea or vomiting or worsening of abdominal pain would be signs that we should bring you back to the hospital. Most patients, however, will continue to improve. I did set up an appointment in our office on January 03 at 11 AM. And certainly if you need anything before that, do not hesitate to call us. Similarly, if you feel back to normal and everything is going well, then you do not need to go out of your way to follow-up with that visit. Activity:: Activity as Tolerated Equipment/Supplies:: No Equipment Needed Diet:: Soft diet for 24 hours DS: Summary Time Spent with Patient providing and/or coordinating discharge services: Less than 30 minutes Status at Discharge Functional status at discharge: independent ambulation Overall status at discharge: patient is progressing back to baseline Mental Status: mental status grossly normal Speech and Movement: speech and movement normal Mood: congruent mood Affect: normal affect Quality:SDOH Health Related Social Needs: Health related social needs housing instability, housed, with risk of homelessness (Z59.811), inadequate housing (Z59.1) Health related social needs details N/A Exam GI Other: Abdomen is soft and nondistended. She is just a tiny bit tympanitic. She is not tender and has no peritoneal signs. Psych Mental Status: mental status grossly normal Speech and Movement: speech and movement normal Mood: congruent mood Affect: normal affect DS: Data Vitals/I&O Vitals and I&O: Vital Signs Temperature 97.0 F L 12/16/24 07:18 Temperature Source Temporal Artery Scan 12/16/24 07:18 Pulse 63 12/16/24 07:18 Pulse Rhythm Regular 12/16/24 02:59 Respiratory Rate 16 12/16/24 07:18 Respiratory Effort Normal, Non-Labored 12/16/24 02:59 Respiratory Depth Normal 12/16/24 02:59 Respiratory Pattern Normal 12/16/24 02:59 Blood Pressure 127/55 L 12/16/24 07:18 Blood Pressure Position Sitting 12/15/24 22:48 Pulse Oximetry 99 12/16/24 07:18 Oxygen Delivery Method Room Air 12/16/24 08:18 Oxygen Flow Rate 0 12/16/24 08:18 Pain Level 3 12/16/24 11:36 Comment bp relayed to RN 12/16/24 07:18 Intake & Output 12/15/24 12/16/24 12/16/24 23:59 11:59 23:59 Intake Total 2710 / 3710 1000 / 3710 Output Total 700 / 950 250 / 950 Balance 2009 750 / 2760 Weight 119 lb 119 lb Intake: IV 2110 / 3110 1000 / 3110 Oral 600 / 600 Output: Urine 700 / 950 250 / 950 Other: Urine Color Yellow Yellow Urine Appearance Clear Clear Urine Odor None Data Completed and Pending Labs on day of discharge: Labs from last 24 hours 12/16/24 12/16/24 12/16/24 08:25 01:30 00:20 WBC 9.13 RBC 4.29 Hgb 12.6 Hct 39.1 MCV 91 MCH 29.4 MCHC 32.2 RDW 14.7 H Plt Count 249 MPV 11.5 H Immature Gran % Neutrophils % Lymphocytes % Monocytes % Eosinophils % Basophils % Nucleated RBC % Absolute Neutrophils Absolute Lymphocytes Absolute Monocytes Absolute Eosinophils Absolute Basophils VBG Lactate 0.9 1.8 H Sodium Potassium Chloride Carbon Dioxide Anion Gap BUN Creatinine Est GFR (CKD-EPI 2020) Glucose Calcium Total Bilirubin AST ALT Alkaline Phosphatase Troponin I 8 6 Total Protein Albumin Lipase Urine Color Urine Clarity Urine pH Ur Specific [place] Urine Protein Urine Ketones Urine Blood Urine Nitrite Urine Bilirubin Urine Urobilinogen Ur Leukocyte Esterase Urine Glucose 12/15/24 12/15/24 23:40 22:59 WBC 12.56 H RBC 4.86 Hgb 14.4 Hct 43.5 MCV 90 MCH 29.6 MCHC 33.1 RDW 14.4 Plt Count 271 MPV 10.4 Immature Gran % 0.3 Neutrophils % 79.6 Lymphocytes % 13.1 Monocytes % 6.0 Eosinophils % 0.3 Basophils % 0.7 Nucleated RBC % 0.0 Absolute Neutrophils 10.00 H Absolute Lymphocytes 1.65 Absolute Monocytes 0.75 Absolute Eosinophils 0.04 Absolute Basophils 0.09 VBG Lactate 2.9 H* Sodium 139 Potassium 3.7 Chloride 100 Carbon Dioxide 28.7 Anion Gap 10.3 BUN 41 H Creatinine 1.3 H Est GFR (CKD-EPI 2020) 43.96 Glucose 170 H Calcium 9.8 Total Bilirubin 0.40 AST 20 ALT 26 Alkaline Phosphatase 118 H Troponin I 6 Total Protein 8.0 Albumin 3.7 Lipase 47 Urine Color Yellow Urine Clarity Clear Urine pH 7.5 Ur Specific [place] 1.020 Urine Protein Negative Urine Ketones Negative Urine Blood Negative Urine Nitrite Negative Urine Bilirubin Negative Urine Urobilinogen 0.2 Ur Leukocyte Esterase Negative Urine Glucose Negative PFSH All Active Problems Nonocclusive mesenteric ischemia (Acute) Abdominal pain (Acute) Volvulus (Acute) Tick bite of axillary region (Acute ~03/2024) Dyspepsia (Acute) [facility] [place] [facility]--10/13/23 Vaginal atrophy (Chronic) 02/2022 - Start vaginal Estridiol GERD (gastroesophageal reflux disease) (Chronic) Back pain without radiculopathy (Chronic) Gluten intolerance (Chronic) 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 Paternal Cousin Kidney disease Maternal Aunt Colon cancer Social History Smoking/Tobacco Use Status: Never Second Hand Exposure: Yes Smoking risk assessment performed?: Yes Alcohol Intake: never Drug use: Never Substance use type: does not use Counseling given: No Counseling provided: none Adopted: No Caregiver/Support person: No Foster care: No Household members: spouse Housing: house Number of Children: 2 number of grandchildren: 5 Communication Needs: Hard of Hearing and Corrective Lenses Education Level: high school Do you need help understanding health information?: Never current occupation: retired Pets and animals: No Sexually active: Yes Do you think of yourself as: straight/heterosexual Current gender identity: female What is your relationship status?: How often do you talk on the phone with friends or family?: twice per week How often do you get together with friends or relatives?: once per week How often do you attend worship or zoroastrianism services?: decline to answer Do you belong to any clubs or organized social groups?: no Panel score (0-1 are the most socially isolated patients): 2 What type of physical activity do you participate in: walking, regular exercise and other Details: gardening, lawnmowing Duration: > 90 minutes/day Frequency: 3-4 times per week Teetee/Gnosticism: No preference Special teetee needs: No Seatbelt use: always Helmet use: No (No reason to use one) Drive intox or ride w/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
--- NOTE | 2024-12-16 16:23 | INITIAL_ITS ---
Date of service: 12/16/24 Time of Service: 12:10 Care Management Initial Assmt Initial Assessment Reason for Hospitalization: midgut volvulus Functional Status/Living Situation Patient Presentation: Kathia presented to the ER early this morning with c/o acute onset of abdominal pain, abdominal distention and nausea and vomiting. CT scan demonstrated a volvulus. Not long thereafter, she had a resolution of her symptoms. She was kept overnight. Tolerated clear liquids for both breakfast and lunch, and was discharged home. Kathia was sitting up in her bed, enjoying a popsicle, when CM met with her today. Her , Aric, was present. Both were very pleasant. Kathia stated that she was hoping to go home, she was feeling so much better. It appears that her volvulus resolved on its own! Surgeon was in to see her shortly thereafter and she was discharged home. 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) Instrumental Activities of Daily Living (ADLs): Independent Medications Medication Management: No Issues/Barriers identified Advance Directives Advance Directives: Do you have an Advance Directive: Y 10/01/23 15:45 AD On File at [facility]: N 06/16/13 16:47 Date Asked 12/16/24 12/16/24 07:55 AD Date Reviewed COLST On File at [facility] COLST Date Scanned Code Status Resuscitation Status Full Code Insurance Coverage/Financial Issues Insurance: medicare A&B/ supplement Financial Issues: denies Care Team Visit Care Team Role Provider Type Maddy Ivey NP Primary Care Provider NURSE PRACTITIONER Brian Regalado DO Emergency Provider [facility] STAFF PHYSICIAN Sean Brenner MD Admit Provider [facility] STAFF PHYSICIAN Attending Provider Discharge Potential Discharge Needs: Surgical F/U Appt (has appt with Dr. Brenner on 01/03/25) Anticipated Barriers to Discharge: None Identified Patient/Family Education Needs: Review discharge instructions, discuss Ask Me Three Transportation: Private vehicle Plan: Kathia was discharged home today with clear instructions on how to advance her diet, and s/sx that would necessitate returning to the ER. She will have no new services and is on no new medications. She will f/u with the surgeon on 01/03 and continue per her plan of care. She will transport home with her . Social Determinants of Health Screening Social Determinants of Health last assessed: 12/16/24 Will the Patient Participate in the Screening?: Yes Do you worry about having a steady place to live?: no Problems where you live: pests such as bugs, ants or mice In the past 12 months, have you had to go without electric, gas, oil or water in your home?: no Have you or anyone in your house had to go without enough food to eat?: no Has lack of transportation kept you from medical appointments or from doing things needed for daily living?: no Has anyone in your life made you feel unsafe or unsupported?: no How hard is it for you to pay for the very basics like food, housing, medical care, and heating? Would you say it is:: Not hard at all Do you want help finding or keeping work or a job?: I do not need or want help If for any reason you need help with day-to-day activities such as bathing, preparing meals, shopping, managing finances, etc., do you get the help you need?: I don?t need any help How often do you feel lonely or isolated from those around you?: Never Do you speak a language other than [place] at home?: No Does the patient want assistance with any of the above?: No Health Related Social Needs Health related social needs: inadequate housing (Z59.1) PFSH All Active Problems Nonocclusive mesenteric ischemia (Acute) Abdominal pain (Acute) Volvulus (Acute) Tick bite of axillary region (Acute ~03/2024) Dyspepsia (Acute) [facility] [place] [facility]--10/13/23 Vaginal atrophy (Chronic) 02/2022 - Start vaginal Estridiol GERD (gastroesophageal reflux disease) (Chronic) Back pain without radiculopathy (Chronic) Gluten intolerance (Chronic) 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 Paternal Cousin Kidney disease Maternal Aunt Colon cancer Social History Smoking/Tobacco Use Status: Never Second Hand Exposure: Yes Smoking risk assessment performed?: Yes Alcohol Intake: never Drug use: Never Substance use type: does not use Counseling given: No Counseling provided: none Adopted: No Caregiver/Support person: No Foster care: No Household members: spouse Housing: house Number of Children: 2 number of grandchildren: 5 Communication Needs: Hard of Hearing and Corrective Lenses Education Level: high school Do you need help understanding health information?: Never current occupation: retired Pets and animals: No Sexually active: Yes Do you think of yourself as: straight/heterosexual Current gender identity: female What is your relationship status?: How often do you talk on the phone with friends or family?: twice per week How often do you get together with friends or relatives?: once per week How often do you attend sabianist or adventist services?: decline to answer Do you belong to any clubs or organized social groups?: no Panel score (0-1 are the most socially isolated patients): 2 What type of physical activity do you participate in: walking, regular exercise and other Details: gardening, lawnmowing Duration: > 90 minutes/day Frequency: 3-4 times per week Teetee/Restorationist: No preference Special teetee needs: No Seatbelt use: always Helmet use: No (No reason to use one) Drive intox or ride w/intox 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
--- NOTE | 2024-12-16 16:41 | CMDISCH_ITS ---
Date of service: 12/16/24 Time of Service: 16:41 LACE Index Scoring Tool Questions: Length of Stay (in days): 1 Was the patient admitted via the E.D.?: Yes E.D. Visits: 1 Answers: Total Score: 5 Risk of Readmission: Low Risk Care Management Discharge Plan Reason for Hospitalization: midgut volvulus Discharge Plan: Kathia was discharged home today with no new services or meds. She was given excellent instructions on advancing her diet and return prec autions. Kathia will f/u with surgery on 01/03 and continue per her plan of care. She was transported by her in a private vehicle. Patient/Family Education Needs: Review of discharge instructions, activity, limitations, diet and symptoms to report. Discuss ask me 3. SDOH Health Related Social Needs: Health related social needs inadequate housing (Z59.1) Health related social needs details N/A
== END 2024-12-16 13:38 | disposition home or self-care (01) ==
LOC: ER 12-16 01:59 → MS 12-16 03:36
PROVIDERS: Surgery; Admitting Provider Student in an Organized Health Care Education/Training Program; Emergency Provider Student in an Organized Health Care Education/Training Program; PCP Nurse Practitioner Adult Health; Visit Provider Student in an Organized Health Care Education/Training Program
DX: K56.2 Volvulus (principal); K55.019 Acute (reversible) ischemia of small intestine, extent unspecified; K21.9 Gastro-esophageal reflux disease without esophagitis; G43.009 Migraine without aura, not intractable, without status migrainosus; K58.9 Irritable bowel syndrome, unspecified; F41.9 Anxiety disorder, unspecified; R11.2 Nausea with vomiting, unspecified; R10.13 Epigastric pain; R14.0 Abdominal distension (gaseous); D72.829 Elevated white blood cell count, unspecified; E87.20 Acidosis, unspecified
CPT/HCPCS: 36415; 80053; 83690; 85027; 93005; 96361; 96365; 96372; 96375; 99236; 99291; 74177; 81003; 83605; 84484; 85025; 93010; J0131; J1644; J1885; J2405; J3490

== ENCOUNTER → 2025-01-03 10:49 | Outpatient (BNVA) | payer MEDICARE, OTHER, SELFPAY | PROVIDERS: PCP Nurse Practitioner Adult Health; Referring Provider Nurse Practitioner Adult Health; Visit Provider Surgery | DX: K56.2 Volvulus (principal); L98.9 Disorder of the skin and subcutaneous tissue, unspecified | CPT/HCPCS: 99214 ==

== ENCOUNTER → 2025-01-17 09:20 | Outpatient (BNVA) | payer MEDICARE, OTHER, SELFPAY | PROVIDERS: PCP Nurse Practitioner Adult Health; Referring Provider Nurse Practitioner Adult Health; Visit Provider Surgery | DX: D18.01 Hemangioma of skin and subcutaneous tissue (principal); D23.5 Other benign neoplasm of skin of trunk | CPT/HCPCS: 11402 ==

== ENCOUNTER 2025-01-17 10:00 | Outpatient (REF) | payer MEDICARE, OTHER, SELFPAY ==
--- NOTE | 2025-01-17 09:58 | SKI_PTH ---
PATIENT: Jessica Duarte LOC: [facility] U#:[id number] AGE/SX: 69/F ROOM: RE01/17/[address]: Colton Rankin MD : [id number] BED: DIS: 01/17/2025 SPEC #: [id number] RECD: 01/17/25 12:45 STATUS: MELVA REQ #: [id number] LEXIE: 01/17/25 09:[address]: Colton Rankin DEPT: Surgical Specimen RECD BY: Delisa Cleaning ENTERED: 01/17/25 12:45 SP TYPE: RON RAYMUNDO DR: Maddy Ivey APRN Tissues: 1 - SKIN BIOPSY(SHAVE/PUNCH) Procedures: SKIN LEVEL 4 Comments: [id number]
== END 2025-01-17 10:01 | disposition home or self-care (01) ==
LOC: LBN 10:00
PROVIDERS: PCP Nurse Practitioner Adult Health; Visit Provider Surgery
DX: D18.01 Hemangioma of skin and subcutaneous tissue (principal); D16.02 Benign neoplasm of scapula and long bones of left upper limb
CPT/HCPCS: 88305

== ENCOUNTER 2025-07-03 03:21 | Outpatient (CLI) | payer MEDICARE, SELFPAY ==
[2025-07-03 12:16] LABS: Abs Immature Grans 0.02 10^3/uL (0.0-0.06); HCT 42.1 % (36.0-46.0); HGB 13.5 g/dL (11.2-15.7); Immature Grans % 0.3 %; MCH 29.3 pg (27.0-33.0); MCHC 32.1 % (32.0-36.0); MCV 91 fL (80-95); MPV 11.5 fL (8.0-11.0); Platelet Count 254 10^3/uL (130-400); RBC 4.61 10^6/uL (3.93-5.22); RDW 14.6 % (11.7-14.6); RDW-SD 48.9 fL; WBC 6.47 10^3/uL (4.4-10.8)
[2025-07-03 12:46] LABS: ALT 41 U/L (14-59); AST 26 U/L (15-37); Albumin 3.8 g/dL (3.4-5.0); Alkaline Phosphatase 117 U/L (46-116); Anion Gap 5.6 mmol/L (3-11); BUN 26 mg/dL (7-18); Bilirubin, Total 0.4 mg/dL (0.2-1.0); CO2 32.4 mmol/L (21.0-32.0); Calcium 9.6 mg/dL (8.5-10.1); Chloride 101 mmol/L (98-107); Estimated GFR 59.86 (mL/min/1.73m2); Glucose 83 mg/dL (74-106); Potassium 3.5 mmol/L (3.5-5.1); Sodium 139 mmol/L (136-145); TSH (W/Ref FT4) 0.93 uIU/mL (0.36-3.74); Total Protein 7.9 g/dL (6.4-8.2)
[2025-07-04 09:37] LABS: Prealbumin 22 mg/dL (20-40)
[2025-07-05 08:53] LABS: Lab Add On Test DONE
[2025-07-05 09:17] LABS: Calculated LDL 104 mg/dL (<100); Cholesterol 191 mg/dL (<200); HDL Cholesterol 71 mg/dL (>or=50); Triglyceride 81 mg/dL (<150)
== END 2025-07-03 03:22 | disposition home or self-care (01) ==
LOC: LOS 03:21
PROVIDERS: PCP Nurse Practitioner Adult Health; Visit Provider Nurse Practitioner Adult Health
DX: R63.4 Abnormal weight loss (principal); Z13.6 Encounter for screening for cardiovascular disorders
CPT/HCPCS: 36415; 80053; 80061; 84134; 84443; 85025

== ENCOUNTER 2025-10-03 01:25 | Outpatient (CLI) | payer MEDICARE, SELFPAY ==
[2025-10-03 14:11] LABS: Anion Gap 5.0 mmol/L (3-11); BUN 25 mg/dL (7-18); CO2 32.0 mmol/L (21.0-32.0); Calcium 9.5 mg/dL (8.5-10.1); Chloride 100 mmol/L (98-107); Glucose 125 mg/dL (74-106); Potassium 3.7 mmol/L (3.5-5.1); Sodium 137 mmol/L (136-145)
[2025-10-04 19:03] LABS: Cystatin C, S 0.95 mg/L
== END 2025-10-03 01:26 | disposition home or self-care (01) ==
LOC: LOS 01:25
PROVIDERS: PCP Nurse Practitioner Adult Health; Visit Provider Nurse Practitioner Adult Health
DX: R63.6 Underweight (principal); Z68.1 Body mass index [BMI] 19.9 or less, adult
CPT/HCPCS: 36415; 80048; 82610

== ENCOUNTER 2025-10-05 13:47 | Outpatient (REF) | payer MEDICARE, SELFPAY ==
[2025-10-09 23:43] LABS: Pancreatic Elastase, F 128 mcg/g
== END 2025-10-05 13:48 | disposition home or self-care (01) ==
LOC: LBN 13:47
PROVIDERS: PCP Nurse Practitioner Adult Health; Visit Provider Nurse Practitioner Adult Health
DX: R63.4 Abnormal weight loss (principal); K58.2 Mixed irritable bowel syndrome
CPT/HCPCS: 82656